=== PATIENT | female | born 2005 | race Caucasian/White ===

== ENCOUNTER 2025-09-24 09:53 | Outpatient (CLI) | payer OTHER ==
[2025-09-25 08:09] LABS: HEPATITIS A ANTIBODY IGG Positive (Negative); HEPATITIS C VIRUS ANTIBODY Non Reactive (Non Reactive)
== END 2025-09-24 10:02 | disposition home or self-care (01) ==
LOC: LAB 09:53
DX: A64 Unspecified sexually transmitted disease (principal); B15.0 Hepatitis A with hepatic coma; B17.10 Acute hepatitis C without hepatic coma; Z11.0 Encounter for screening for intestinal infectious diseases

== ENCOUNTER 2025-09-26 10:43 | Outpatient (CLI) | payer OTHER | END 2025-09-26 10:48 | disposition home or self-care (01) | LOC: LAB 10:43 | DX: A64 Unspecified sexually transmitted disease (principal); B15.0 Hepatitis A with hepatic coma; B17.10 Acute hepatitis C without hepatic coma; Z11.0 Encounter for screening for intestinal infectious diseases ==